=== PATIENT | male | born 1985 | race Caucasian/White ===

== ENCOUNTER 2018-07-22 08:58 | Emergency (ER) | payer BC ==
[2018-07-22] MEDS ORDERED: METOPROLOL TARTRATE 5 MG/5 ML INJ IV ONE (09:33)
[2018-07-22 09:35] LABS: Absolute Lymphocytes (CBC) 1.8 K/uL (0.7-4.9); Absolute Monocytes 0.7 K/uL (0.1-1.3); Absolute Neutrophil 4.9 K/uL (1.8-8.0); Basophils % 0.4 % (0-1.3); Eosinophils % 0.6 % (0-4.4); Lymphocytes % 24.3 % (15.3-44.8); MPV 9.2 fL (7.6-11.3); Monocytes % 9.2 % (3.3-12.3); RBC Red Blood Cell Count 5.45 M/uL (4.33-5.43)
[2018-07-22 09:49] LABS: Protime INR 0.97
[2018-07-22 09:52] LABS: ALT/SGPT 35 U/L (12-78); AST/SGOT 16 U/L (15-37); Alkaline Phosphatase 87 U/L (45-117); BUN Blood Urea Nitrogen 17 mg/dL (7-18); Bicarbonate 27 mmol/L (21-32); Bilirubin Direct 0.1 mg/dL (0-0.2); Bilirubin Total 0.6 mg/dL (0.2-1.0); Glucose Level 105 mg/dL (74-106); Magnesium 2.4 mg/dL (1.8-2.4); NT PRO-BNP 59 pg/mL (<125); Potassium 3.9 mmol/L (3.5-5.1); Protein, Total 7.3 g/dL (6.4-8.2); Sodium Level 143 mmol/L (136-145); Troponin (Emerg Dept Use Only) < 0.02 ng/mL (0.0-0.045)
[2018-07-22] MEDS ORDERED: METOPROLOL TAR 25 MG TAB ONE (10:25)
--- NOTE | 2018-07-22 10:56 | ER ---
Nurse's Notes [facility] Name: Jossue Zuluaga Age: 32 yrs Sex: Male : 1985 Arrival Date: 07/22/2018 Time: 09:00 Bed 3 Private MD: Diagnosis: Atrial fibrillation and flutter-With RVR - resolved Presentation: 07/22 09:09 Presenting complaint: Patient states: i woke up today with my heart racing, like im hj having palpitations, reports SOB; denies chest pain; states, "i have this episode while i was on my 20's;. Transition of care: patient was not received from another setting of care. Onset of symptoms was July 22, 2018. Risk Assessment: Do you want to hurt yourself or someone else? Patient reports no desire to harm self or others. Initial Sepsis Screen: Does the patient meet any 2 criteria? No. Patient's initial sepsis screen is negative. Does the patient have a suspected source of infection? No. Patient's initial sepsis screen is negative. Care prior to arrival: None. 09:09 Method Of Arrival: Ambulatory 09:09 Acuity: PRADEEP 3 hj Triage Assessment: 09:13 General: Appears in no apparent distress. uncomfortable, Behavior is calm, cooperative, hj appropriate for age. Respiratory: Reports shortness of breath Onset: The symptoms/episode began/occurred this morning, the patient has mild shortness of breath. 09:13 Pain: Denies pain. EENT: No signs and/or symptoms were reported regarding the EENT hj system. Neuro: Level of Consciousness is awake, alert, obeys commands, Oriented to person, place, time, situation, Appropriate for age. Cardiovascular: Denies chest pain, Capillary refill < 3 seconds Patient's skin is warm and dry. Rhythm is atrial fibrillation with rapid ventricular response. GI: No signs and/or symptoms were reported involving the gastrointestinal system. : No signs and/or symptoms were reported regarding the genitourinary system. Derm: No signs and/or symptoms reported regarding the dermatologic system. Musculoskeletal: No signs and/or symptoms reported regarding the musculoskeletal system. Historical: - Allergies: 09:12 No Known Allergies; hj - Home Meds: 09:12 omeprazole Oral [Active]; hj - PMHx: 09:12 GERD; hj - PSHx: 09:12 finger; hj - Immunization history:: Adult Immunizations up to date. - Social history:: Smoking status: Patient/guardian denies using tobacco, Patient uses alcohol, occasionally. - Ebola Screening: : Patient negative for fever greater than or equal to 101.5 degrees Fahrenheit, and additional compatible Ebola Virus Disease symptoms Patient denies exposure to infectious person Patient denies travel to an Ebola-affected area in the 21 days before illness onset. Screenin:13 Abuse screen: Denies threats or abuse. Denies injuries from another. Nutritional hj screening: No deficits noted. Tuberculosis screening: No symptoms or risk factors identified. Fall Risk None identified. Assessment: 09:13 Pain: Denies pain. Cardiovascular: Rhythm is atrial fibrillation. Respiratory: Airway hj is patent Respiratory effort is even, unlabored, Respiratory pattern is regular, symmetrical, Breath sounds are clear. 09:13 Reassessment: see triage for assessment;. hj 09:30 General: Appears in no apparent distress. uncomfortable, well developed, Behavior is sv calm, cooperative, appropriate for age. Pain: Denies pain. Neuro: Level of Consciousness is awake, alert, obeys commands, Oriented to person, place, time, situation, Moves all extremities. Full function Speech is normal. Respiratory: Airway is patent Respiratory effort is even, unlabored, Respiratory pattern is regular, symmetrical, Breath sounds are clear bilaterally. Derm: Skin is pink, warm \\T\\ dry. 09:32 Reassessment: per ER MD, pt to be transferred to trauma pod; report given to Tsering Mccoy RN. 09:39 Reassessment: Patient appears in no apparent distress at this time. Patient and/or sv family updated on plan of care and expected duration. Pain level reassessed. Patient is alert, oriented x 3, equal unlabored respirations, skin warm/dry/pink. Informed Dr Medrano of updated vitals after 2 rounds of Lopressor IVP. Stated to hold off on the 3rd round. Patient states symptoms have improved. 10:03 Reassessment: Patient appears in no apparent distress at this time. Patient and/or sv family updated on plan of care and expected duration. Pain level reassessed. Patient is alert, oriented x 3, equal unlabored respirations, skin warm/dry/pink. Patient states feeling better. Patient states symptoms have improved. Cardiovascular: Rhythm is sinus rhythm. 11:13 Reassessment: Patient appears in no apparent distress at this time. Patient and/or sv family updated on plan of care and expected duration. Pain level reassessed. Patient is alert, oriented x 3, equal unlabored respirations, skin warm/dry/pink. Patient states feeling better. Patient states symptoms have improved. Cardiovascular: Rhythm is sinus rhythm. Vital Signs: 09:10 BP 125 / 86; Pulse 160; Resp 18; Temp 98.1(O); Pulse Ox 98% on R/A; Weight 113.4 kg; hj Height 6 ft. 1 in. (185.42 cm); Pain 0/10; 09:23 BP 128 / 93; Pulse 175; Resp 20; Pulse Ox 98% on R/A; sv 09:30 BP 133 / 87; Pulse 118 MON; Resp 16; Pulse Ox 98% ; sv 09:38 BP 113 / 79; Pulse 105; Resp 14; Pulse Ox 98% ; sv 10:03 BP 116 / 79; Pulse 87 MON; Resp 20; Pulse Ox 98% ; sv 10:30 BP 108 / 68; Pulse 79; Resp 12; Pulse Ox 98% ; sv 11:00 BP 106 / 73; Pulse 74; Resp 19; Pulse Ox 98% ; sv 09:10 Body Mass Index 32.98 (113.40 kg, 185.42 cm) hj 09:30 A fib sv 10:03 Sinus Rhythm sv ED Course: 09:00 Patient arrived in ED. as 09:04 Gage Medrano MD is Attending Physician. kdr 09:08 John Hernández, MATT is Primary Nurse. hj 09:10 Triage completed. hj 09:14 Arm band placed on right wrist. hj 09:14 Patient has correct armband on for positive identification. Placed in gown. Bed in low hj position. Call light in reach. Side rails up X 1. 09:19 EKG done, by remote sensing technician. reviewed by Gage Medrano MD. at1 09:20 Initial lab(s) drawn, by ED staff, sent to lab. Inserted saline lock: 20 gauge in right hj antecubital area, using aseptic technique. Blood collected. 09:22 X-ray completed. Portable x-ray completed in exam room. Patient tolerated procedure sw well. 09:23 XRAY Chest (1 view) In Process Unspecified. EDMS 09:28 Primary Nurse role handed off by John Hernández RN 09:28 Tsering Mccoy, MATT is Primary Nurse. sv 10:23 EKG done, by remote sensing technician. reviewed by Gage Medrano MD Repeat EKG. at1 11:12 No provider procedures requiring assistance completed. IV discontinued, intact, sv bleeding controlled, No redness/swelling at site. Pressure dressing applied. Administered Medications: 09:25 Drug: Lopressor 5 mg Route: IVP; Site: right antecubital; sv 09:31 Drug: Lopressor 5 mg Route: IVP; Site: right antecubital; sv 10:02 Follow up: Response: No adverse reaction; Marked relief of symptoms sv 10:14 Drug: Lopressor 25 mg Route: PO; hb 11:00 Follow up: Response: No adverse reaction sv Outcome: 10:55 Discharge ordered by . kdr 11:14 Discharged to home ambulatory. sv 11:14 Condition: stable 11:14 Condition: improved 11:14 Discharge instructions given to patient, Instructed on discharge instructions, follow up and referral plans. medication usage, keeping a BP and HR log to f/u with script reader. Demonstrated understanding of instructions, follow-up care, medications, Prescriptions given X 1. 11:15 Patient left the ED. sv Signatures: Dispatcher [employer] [facility] Tsering Mccoy, MATT GUTIERREZ Gage Medrano MD MD kdr Martinez, Amelia as Gonzales, Amanda, surg nurse EKG Tat1 Abdulkadir Uzma John Hernández RN RN hj Baxter, Heather, RN RN hb Corrections: (The following items were deleted from the chart) 09:20 09:10 Pulse 160bpm; Resp 18bpm; Pulse Ox 98% RA; Temp 98.1F Oral; 113.4 kg; Height 6 hj ft. 1 in.; BMI: 32.9; Pain 0/10; hj 09:54 09:13 Cardiovascular: Capillary refill < 3 seconds Patient's skin is warm and dry. hj hj
--- NOTE | 2018-07-22 10:56 | EDPHYS ---
Physician Documentation [facility] Name: Jossue Zuluaga Age: 32 yrs Sex: Male : 1985 Arrival Date: 07/22/2018 Time: 09:00 Bed 3 Private MD: ED Physician Gage Medrano HPI: 07/22 10:15 This 32 yrs old Male presents to ER via Ambulatory with complaints of kdr Palpitations, Shortness Of Breath, Headache. 10:15 The patient presents with a history of irregular heart beat, heart racing. Context: The kdr symptoms occur at rest, Noted when he awoke this morning. Onset: The symptoms/episode began/occurred this morning. Duration: The patient or guardian reports a single episode, that is still ongoing. Modifying factors: The symptoms are aggravated by nothing. The symptoms are alleviated by nothing. Associated signs and symptoms: Pertinent positives: anxiety, lightheadedness, nausea, SOB. Severity of symptoms: At their worst the symptoms were moderate in the emergency department the symptoms are unchanged. The patient has experienced similar episodes in the past, a few times. The patient has not recently seen a physician. Historical: - Allergies: 09:12 No Known Allergies; hj - Home Meds: 09:12 omeprazole Oral [Active]; hj - PMHx: 09:12 GERD; hj - PSHx: 09:12 finger; hj - Immunization history:: Adult Immunizations up to date. - Social history:: Smoking status: Patient/guardian denies using tobacco, Patient uses alcohol, occasionally. - Ebola Screening: : Patient negative for fever greater than or equal to 101.5 degrees Fahrenheit, and additional compatible Ebola Virus Disease symptoms Patient denies exposure to infectious person Patient denies travel to an Ebola-affected area in the 21 days before illness onset. ROS: 10:15 Constitutional: Negative for fever, chills, and weight loss, Eyes: Negative for injury, kdr pain, redness, and discharge, ENT: Negative for injury, pain, and discharge, Neck: Negative for injury, pain, and swelling, Respiratory: Negative for shortness of breath, cough, wheezing, and pleuritic chest pain, Abdomen/GI: Negative for abdominal pain, nausea, vomiting, diarrhea, and constipation, Back: Negative for injury and pain, : Negative for injury, bleeding, discharge, and swelling, MS/Extremity: Negative for injury and deformity, Skin: Negative for injury, rash, and discoloration, Neuro: Negative for headache, weakness, numbness, tingling, and seizure activity. Psych: Negative for depression, anxiety, suicide ideation, homicidal ideation, and hallucinations, Allergy/Immunology: Negative for hives, rash, and allergies, Endocrine: Negative for neck swelling, polydipsia, polyuria, polyphagia, and marked weight changes, Hematologic/Lymphatic: Negative for swollen nodes, abnormal bleeding, and unusual bruising. 10:15 Cardiovascular: Positive for chest pain, palpitations, Negative for edema, orthopnea, paroxysmal nocturnal dyspnea. Exam: 10:13 ECG was reviewed by the Attending Physician. kdr 10:15 Constitutional: This is a well developed, well nourished patient who is awake, alert, kdr and in no acute distress. Head/Face: Normocephalic, atraumatic. Eyes: Pupils equal round and reactive to light, extra-ocular motions intact. Lids and lashes normal. Conjunctiva and sclera are non-icteric and not injected. Cornea within normal limits. Periorbital areas with no swelling, redness, or edema. Neck: Trachea midline, no thyromegaly or masses palpated, and no cervical lymphadenopathy. Supple, full range of motion without nuchal rigidity, or vertebral point tenderness. No Meningismus. Chest/axilla: Normal chest wall appearance and motion. Nontender with no deformity. No lesions are appreciated. Respiratory: Lungs have equal breath sounds bilaterally, clear to auscultation and percussion. No rales, rhonchi or wheezes noted. No increased work of breathing, no retractions or nasal flaring. Abdomen/GI: Soft, non-tender, with normal bowel sounds. No distension or tympany. No guarding or rebound. No evidence of tenderness throughout. Back: No spinal tenderness. No costovertebral tenderness. Full range of motion. Skin: Warm, dry with normal turgor. Normal color with no rashes, no lesions, and no evidence of cellulitis. MS/ Extremity: Pulses equal, no cyanosis. Neurovascular intact. Full, normal range of motion. Neuro: Awake and alert, GCS 15, oriented to person, place, time, and situation. Cranial nerves II-XII grossly intact. Motor strength 5/5 in all extremities. Sensory grossly intact. Cerebellar exam normal. Normal gait. Psych: Awake, alert, with orientation to person, place and time. Behavior, mood, and affect are within normal limits. 10:15 Cardiovascular: Rate: tachycardic, Rhythm: irregularly irregular, Pulses: no pulse deficits are appreciated, Heart sounds: normal, Edema: is not appreciated. Vital Signs: 09:10 BP 125 / 86; Pulse 160; Resp 18; Temp 98.1(O); Pulse Ox 98% on R/A; Weight 113.4 kg; hj Height 6 ft. 1 in. (185.42 cm); Pain 0/10; 09:23 BP 128 / 93; Pulse 175; Resp 20; Pulse Ox 98% on R/A; sv 09:30 BP 133 / 87; Pulse 118 MON; Resp 16; Pulse Ox 98% ; sv 09:38 BP 113 / 79; Pulse 105; Resp 14; Pulse Ox 98% ; sv 10:03 BP 116 / 79; Pulse 87 MON; Resp 20; Pulse Ox 98% ; sv 10:30 BP 108 / 68; Pulse 79; Resp 12; Pulse Ox 98% ; sv 11:00 BP 106 / 73; Pulse 74; Resp 19; Pulse Ox 98% ; sv 09:10 Body Mass Index 32.98 (113.40 kg, 185.42 cm) hj 09:30 A fib sv 10:03 Sinus Rhythm sv MDM: 10:55 Patient medically screened. kdr 11:08 Data reviewed: vital signs, nurses notes, lab test result(s), radiologic studies. kdr Counseling: I had a detailed discussion with the patient and/or guardian regarding: the historical points, exam findings, and any diagnostic results supporting the discharge/admit diagnosis, lab results, radiology results, the need for outpatient follow up. 07/22 09:05 Order name: Basic Metabolic Panel; Complete Time: 10: kdr 07/22 09:05 Order name: CBC with Diff; Complete Time: 10: kdr 07/22 09:05 Order name: LFT's; Complete Time: 10: kdr 07/22 09:05 Order name: Magnesium; Complete Time: 10: kdr 07/22 09:05 Order name: NT PRO-BNP; Complete Time: 10: kdr 07/22 09:05 Order name: PT-INR; Complete Time: 10: kdr 07/22 09:05 Order name: Troponin (emerg Dept Use Only); Complete Time: 10:09 kdr 07/22 09:05 Order name: XRAY Chest (1 view) kdr 07/22 09:05 Order name: EKG; Complete Time: 09:06 kdr 07/22 09:05 Order name: Cardiac monitoring; Complete Time: 09:15 kdr 07/22 09:05 Order name: EKG - Nurse/Tech; Complete Time: 09:15 kdr 07/22 10:01 Order name: EKG; Complete Time: 10:02 sv 07/22 09:05 Order name: IV Saline Lock; Complete Time: 09:15 kdr 07/22 09:05 Order name: Labs collected and sent; Complete Time: 09:15 kdr 07/22 09:05 Order name: O2 Per Protocol; Complete Time: 09:16 kdr 07/22 09:05 Order name: O2 Sat Monitoring; Complete Time: 09:16 kdr 07/22 10:01 Order name: EKG - Nurse/Tech; Complete Time: 18:43 sv EC:13 Rate is 75 beats/min. Rhythm is regular, Normal Sinus Rhythm with No ectopy. QRS [place] kdr is Normal. TX interval is normal. QRS interval is normal. QT interval is normal. No Q waves. Clinical impression: NSR w/ Non-specific ST/T Changes. Administered Medications: 09:25 Drug: Lopressor 5 mg Route: IVP; Site: right antecubital; sv 09:31 Drug: Lopressor 5 mg Route: IVP; Site: right antecubital; sv 10:02 Follow up: Response: No adverse reaction; Marked relief of symptoms sv 10:14 Drug: Lopressor 25 mg Route: PO; hb 11:00 Follow up: Response: No adverse reaction sv Disposition: 07/22/18 10:55 Discharged to Home. Impression: Atrial fibrillation and flutter - With RVR - resolved. - Condition is Stable. - Discharge Instructions: Aspirin and Your Heart, Atrial Fibrillation, [id number]. - Prescriptions for Metoprolol Tartrate 25 mg Oral Tablet - take 1 tablet by ORAL route 2 times per day with a meal; 40 tablet. - Medication Reconciliation Form, Thank You Letter, Work release form form. - Follow up: Private Physician; When: 2 - 3 days; Reason: If symptoms return, Further diagnostic work-up, Recheck today's complaints, Continuance of care, Re-evaluation by your physician. - Problem is new. - Symptoms are resolved. Signatures: Dispatcher [employer] Tsering Chirinos, Gage Plascencia RN, MD MD [facility] John Hernández RN RN Carol Hooks RN RN Corrections: (The following items were deleted from the chart) 11:15 10:55 07/22/2018 10:55 Discharged to Home. Impression: Atrial fibrillation and flutter sv - With RVR - resolved. Condition is Stable. Forms are Medication Reconciliation Form, Thank You Letter, Antibiotic Education, Prescription Opioid Use. Follow up: Private Physician; When: 2 - 3 days; Reason: If symptoms return, Further diagnostic work-up, Recheck today's complaints, Continuance of care, Re-evaluation by your physician. Problem is new. Symptoms are resolved. kdr
--- NOTE | 2018-07-23 06:45 | EKG ---
Test Date: 2018-07-22 Test Time: 10:09:45 [employer]age Worker: EDUARDO MEASUREMENT RESULTS: Intervals: Rate: 75 PA: 166 QRSD: 110 QT: 342 QTc: 381 [place]: P: 61 PA: 166 QRS: 90 T: 57 INTERPRETIVE STATEMENTS: Normal sinus rhythm with sinus arrhythmia Rightward axis Incomplete right bundle branch block Borderline ECG Compared to ECG 07/22/2018 09:14:54 Right-axis deviation now present Atrial fibrillation no longer present ST (T wave) deviation no longer present Electronically Signed On 07-23-18 06:42:47 CDT by Justice Pierre
--- NOTE | 2018-07-23 06:46 | EKG ---
Test Date: 2018-07-22 Test Time: 09:14:54 Metal Bench Patternmaker: EDUARDO MEASUREMENT RESULTS: Intervals: Rate: 175 [place]: QRSD: 98 QT: 270 QTc: 460 [place]: P: [place]: QRS: 106 T: 18 INTERPRETIVE STATEMENTS: Atrial fibrillation with rapid ventricular response Incomplete right bundle branch block Possible Right ventricular hypertrophy Nonspecific ST abnormality Abnormal ECG No previous ECG available for comparison Electronically Signed On 07-23-18 06:42:53 CDT by Justice Pierre
--- NOTE | 2018-07-23 10:14 | RAD REPORT ---
EXAM DESCRIPTION: Etta Single View07/22/2018 9:23 am CLINICAL HISTORY: Shortness of breath COMPARISON: none FINDINGS: The lungs appear clear of acute infiltrate. The heart is normal size Mild prominence of the mediastinum IMPRESSION: Mild prominence of mediastinum probably not significant. However as lymphadenopathy can have this appearance it is recommended patient follow up PA and lateral chest series in 3 months for re-evaluation
== END 2018-07-22 11:15 | disposition home or self-care (01) ==
LOC: ER 08:58
DX: I48.2 Chronic atrial fibrillation (principal); K21.9 Gastro-esophageal reflux disease without esophagitis
CPT/HCPCS: 36415; 71045; 80048; 80076; 83735; 83880; 84484; 85025; 85610; 93005; 96374; 99285